=== PATIENT | female | born 1955 | race Caucasian/White ===

== ENCOUNTER 2022-01-10 13:49 | Outpatient (RCR) | payer MEDICARE, SELFPAY | END 2022-07-09 23:59 | disposition home or self-care (01) | LOC: CCIC 13:49 | PROVIDERS: PCP Physician Assistant Medical; Visit Provider Internal Medicine Hematology & Oncology | DX: C50.911 Malignant neoplasm of unspecified site of right female breast (principal); Z17.0 Estrogen receptor positive status [ER+]; Z79.811 Long term (current) use of aromatase inhibitors | CPT/HCPCS: 99212; 99214 ==

== ENCOUNTER 2023-02-06 13:00 | Outpatient (RCR) | payer MEDICARE, SELFPAY | END 2023-04-10 08:51 | disposition home or self-care (01) | PROVIDERS: PCP Physician Assistant Medical; Visit Provider Physician Assistant Medical | DX: H81.11 Benign paroxysmal vertigo, right ear (principal); R26.81 Unsteadiness on feet; Z51.89 Encounter for other specified aftercare | CPT/HCPCS: 95992; 97110; 97112; 97140; 97161; 97535 ==

== ENCOUNTER 2023-07-05 15:01 | Outpatient (CLI) | payer MEDICARE, SELFPAY | END 2023-07-05 15:02 | disposition home or self-care (01) | LOC: AMB 07-17 12:28 | PROVIDERS: PCP Physician Assistant Medical; Visit Provider Emergency Medicine | DX: R55 Syncope and collapse (principal) | CPT/HCPCS: A0998 ==

== ENCOUNTER 2023-07-05 15:34 | Emergency (ER) | payer MEDICARE, SELFPAY ==
[2023-07-05] VITALS (18 sets, daily range): BP systolic 135–166; BP diastolic 60–94; PULSE 66–79; RESP 16–20; TEMP 36.6–36.9; O2SAT 96–100; BMI 35.7
--- NOTE | 2023-07-05 17:02 | ED.GENADULT ---
HPI - General Adult General Date Seen: 07/05/23 Chief complaint: Chest Pain Stated complaint: Syncopal half hour ago Time Seen by Provider: 07/05/23 17:02 History of Present Illness HPI narrative: 67-year-old female with a history of hypertension (on amlodipine, hydrochlorothiazide, metoprolol), microvascular coronary artery disease (patient reports recent coronary angiogram done through [facility] on 06/19/2023 that did not show any large vascular disease or anything stentable but did show microvascular narrowing), distant history of breast cancer (diagnosed 2016, lumpectomy and radiation, now on letrozole), presenting to the ER today after she fainted this afternoon at work. She had been having some chest pain off and on for several weeks leading to a stress test which was apparently abnormal leading to an angiogram that was done at [facility] on June 19. The angiogram did not show any large vessel disease and she did not kidney stents but it did show microvascular disease. She was apparently manage medically and her hand lens polisher put her on a new statin and several new blood pressure pills. For the past couple of weeks since being on those new medicine she has noted a lot of side effects including fatigue, sleepiness, dizziness, muscle aches. She has taken the start taking metoprolol at bedtime because she gets so dizzy during the day. She does have a home blood pressure cuff and has been measuring her blood pressure at home every day. Her recent averages been about 94/60 with a low of 60/40 and height 130/80. She does get chest pains intermittently but they are not any worse or any more frequent than the chest pains that she had had for several weeks leading up to her angiogram. 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 She had she had a busy day at work today because her under staff. She was getting ready to go home after working. She was bending down to take off her shoes when she suddenly felt dizzy. She felt herself getting dizzy a new she might faint. She tried to stand up and then she recalls waking up on the floor. She does not really recall any chest pain, palpitations, headache or other symptoms right before she fainted. She does not have any headache or any other signs of head injury. She really did not hurt herself or injure her face, upper extremities, or lower extremities when she fell. Because of the fainting spell she came here to the ER. She suspects it is probably a side effect of her new blood pressure meds. She apparently did have a heart murmur so had an echocardiogram that apparently showed no trouble with her heart valves. She does not have those records currently. Related Data Home Medications Medication Instructions Recorded Confirmed amlodipine 5 mg tablet 5 mg PO QDAY 01/10/22 01/10/22 hydrochlorothiazide 25 mg tablet 25 mg PO QDAY 01/10/22 01/10/22 letrozole 2.5 mg tablet 2.5 mg PO QDAY 01/10/22 01/10/22 metoprolol succinate 100 mg ea PO 01/10/22 01/10/22 tablet,extended release 24 hr metoprolol succinate 50 mg ea PO 01/10/22 01/10/22 tablet,extended release 24 hr Allergies Allergy/AdvReac Type Severity Reaction Status Date / Time No Known Drug Allergies Allergy Verified 07/05/23 15:41 PFSH PFS Social History Smoking Status: Never smoker Do you use any of these nicotine containing products: None Second hand tobacco smoke exposure: No How often do you have a drink containing alcohol: never How often do you have six or more drinks on one occasion: Never AUDIT-C Alcohol total score: 0 Non-prescribed substance use: denies use service: No Exam Narrative: Exam Narrative: Constitutional: Appears well-developed and well-nourished. Alert. Conversant. Non toxic. HENT: Head: Atraumatic. No depressed skull fracture, Raccoon Eyes, Kasper's sign, or hemotympanum. Face normal. TMs normal Nose: Nose normal. Mouth/Throat: Oral mucosa is clear and moist. no trismus. Pharynx normal. Tonsils symmetric. No tonsillar enlargement, erythema, or exudate. Eyes: Conjunctivae normal. EOM normal. Pupils equal, round, and reactive to light. No scleral icterus. Neck: Normal range of motion. Neck supple. No tracheal deviation present. No JVD Cardiovascular: Normal rate, regular rhythm. No gallop. No friction rub. No murmur heard. Symmetric radial artery pulses Pulmonary/Chest: Effort normal. No stridor. No respiratory distress. No wheezes. No rales. No rhonchi . No tenderness. Abdominal: Soft. Bowel sounds normal. No distension. No mass. No tenderness. No rebound. No guarding. Musculoskeletal: RUE: Normal range of motion. No tenderness. No deformity LUE: Normal range of motion. No tenderness. No deformity RLE: Normal range of motion. No edema. No tenderness. No deformity LLE: Normal range of motion. No edema. No tenderness. No deformity Lymph: No cervical adenopathy. Neurological: Alert and oriented to person, place, and time. Normal strength. CN II-VII intact. No sensory deficit. GCS eye subscore is 4. GCS verbal subscore is 5. GCS motor subscore is 6. Normal coordination Skin: Skin is warm and dry. No rash noted. No pallor. Normal capillary refill. Psychiatric: Normal mood. Normal affect. Const: Vital Signs, click to edit/add: Vital Signs - 24 hr 07/05/23 15:41 07/05/23 17:23 07/05/23 17:30 Temperature 97.8 F Pulse Rate 79 78 Respiratory Rate 16 Blood Pressure Blood Pressure [Ri ght Upper Arm] 148/84 H Pulse Oximetry 98 100 99 Oxygen Delivery Me thod Room Air 07/05/23 17:45 07/05/23 17:47 07/05/23 18:00 Temperature Pulse Rate 74 73 71 Respiratory Rate Blood Pressure 141/60 H Blood Pressure [Ri ght Upper Arm] Pulse Oximetry 98 97 97 Oxygen Delivery Me thod 07/05/23 18:02 07/05/23 18:15 07/05/23 18:49 Temperature Pulse Rate 70 69 71 Respiratory Rate Blood Pressure 143/61 H Blood Pressure [Ri ght Upper Arm] Pulse Oximetry 97 97 97 Oxygen Delivery Me thod 07/05/23 19:03 07/05/23 19:32 07/05/23 20:02 Temperature Pulse Rate 75 69 69 Respiratory Rate 20 20 20 Blood Pressure 166/85 H 160/72 H 158/69 H Blood Pressure [Ri ght Upper Arm] Pulse Oximetry 99 97 99 Oxygen Delivery Me thod 07/05/23 20:33 07/05/23 21:03 07/05/23 21:32 Temperature 98.5 F Pulse Rate 66 66 67 Respiratory Rate 20 20 20 Blood Pressure 160/94 H 148/62 H 145/60 H Blood Pressure [Ri ght Upper Arm] Pulse Oximetry 100 96 97 Oxygen Delivery Me thod Course Course ED Course: Recheck-troponin positive at 1.8. Consult placed to [facility]-cardiology Recheck-at 6:36 p.m. discussed with Cardiology, Dr. Bonilla. We discussed her abnormal troponin also new EKG findings of T-wave changes in the lateral leads. I do not have any old EKGs but Dr. Bonilla was able to review it and said that her most recent EKGs were fairly normal. Dr. Bonilla he indicates that her recent angiogram 16 days ago was very normal and that they would likely would not recapped the patient her based on her current symptoms and troponin. recommends that we get a 2nd troponin to see if it is rising. If it is flat, we could admit here to trend troponins and manage medically by adjusting her medications, starting on Imdur, Updated the patient her at 645. She is not currently having any chest pain. Blood pressure 140/60. Oxygen normal on room air. Reevaluation(s) Reevaluation #1: Recheck-2nd troponin rising up to 2.66. Repeat EKG 2. 8:20 p.m. EKG shows normalization of previous nonspecific T-wave changes in V4-V6. Normal sinus rhythm . rate 67 LA 196 QRS axis normal axis. No pathologic Q-waves. ST segment/T wave: Normalization of previous nonspecific changes in V4-V6. QTc: 416. EKG 3. 8:31 p.m. Normal sinus rhythm rate 67 LA 190 QRS axis normal axis. No pathologic Q-waves per ST segment/T wave: No evolving ST segment elevation or depression. QTc: 426 Vital Signs Vital signs: Initial Vital Signs Temperature 97.8 F 07/05/23 15:41 Temperature Source Temporal Artery Scan 07/05/23 15:41 Respiratory Rate 16 07/05/23 15:41 Blood Pressure 148/84 H 07/05/23 15:41 Blood Pressure Mean 105 07/05/23 15:41 Blood Pressure Position Sitting 07/05/23 15:41 Pulse Oximetry 98 07/05/23 15:41 Oxygen Delivery Method Room Air 07/05/23 15:41 Vital Signs Temperature 97.8 F 07/05/23 15:41 Respiratory Rate 16 07/05/23 15:41 Blood Pressure 148/84 H 07/05/23 15:41 Pulse Oximetry 98 07/05/23 15:41 Oxygen Delivery Method Room Air 07/05/23 15:41 Temperature 98.5 F 07/05/23 21:32 Pulse Rate 67 07/05/23 21:32 Respiratory Rate 20 07/05/23 21:32 Blood Pressure 145/60 H 07/05/23 21:32 Pulse Oximetry 97 07/05/23 21:32 Oxygen Delivery Method Room Air 07/05/23 15:41 Medical Decision Making [facility] Narrative Medical decision making narrative: This has at a interesting recent past medical history including recent episodes of chest pain leading to outpatient stress testing that were abnormal and then a coronary angiogram done that [facility] on June 19. Report from the patient and from eye is that the angiogram showed clear coronary arteries. It was suspected that her chest pain could be related to possible microvascular disease. She has been manage medically with beta-blockers, statins, and aggressive blood pressure control for the past couple of weeks since her angiogram. patient presents for evaluation of a syncopal event that occurred this afternoon as she was getting ready to come home from work.. . No murmurs . Initial ECG shows normal sinus rhythm and no dysrhythmogenic abnormality such as WPW, prolonged QT, Brugada syndrome, and no ischemia. No headache or other neurologic symptoms to suggest subarachnoid , stroke . No reported seizure-like activity or postictal phase. 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 A broad differential diagnosis was considered including SVT, Atrial fibrillation, ventricular arrhythmia, thyroid disease, acute electrolyte abnormality, drugs/medications, medication side effect, anemia, heart disease, PE, among others. She did have mild chest pain today but she really says is unchanged from her baseline chest pain over the past couple of months. EKG shows no definite ischemia or arrhythmia. However troponin is markedly abnormal at 1.6. Discussed with cardiology and they recommended trending troponin. They have a low suspicion for true active ACS given her recent normal angiogram. Repeat troponin obtained after 2 hours was rising up to 2.66. Discussed again with cardiology. They will accept in transfer to [facility]. They anticipate probably medical management with nitrates. They did not want a started a nitro drip here in the ER today (given no chest pain). cardiology recommends no heparin unless she has evolving EKG is or worsening condition EKG shows no evidence for pericarditis. No active chest pain to suggest PE or dissection. No tachycardia or hypoxia. No leg swelling. State blood pressure is stable to slightly hypertensive initially about 140/80. Pulse in the 60s. No arrhythmia or AV block. Chest x-ray shows no evidence for cardiomegaly or CHF. No signs of pneumothorax, pleural effusion. No rib fractures. Mediastinum is normal on the PA chest x-ray. She is not having any active chest pain, at no time did she have any pain through to the back or radiating pain down her extremities. She has symmetric pulses on exam. No evidence for any aortic dissection at this point. Labs do show mild renal insufficiency with creatinine of 1.7 and a BUN of 57. She is mildly anemic with a hemoglobin level 11. No symptoms of recent GI bleeding. Do not have baseline hemoglobin but suspect probably chronic. She will be transferred by EMS to [facility]. Lab Data Labs: Lab Results 07/05/23 07/05/23 Range/Units 17:30 19:36 WBC 11.25 H (4.50-11.00) K/uL RBC 3.71 L (4.00-5.20) m/uL Hgb 11.0 L (12.0-16.0) gm/dL Hct 34.2 (33.0-51.0) % MCV 92 (80-100) fL MCH 30 (26-34) pg MCHC 32 (32-36) gm/dL RDW Coeff of Gabriela 11.9 (11.5-15.5) % Plt Count 295 (140-440) K/uL Neut % (Auto) 78.0 H (42.0-72.0) % Lymph % (Auto) 13.0 L (20-44) % [place] % (Auto) 6.2 (0.0-11.0) % Eos % (Auto) 2.2 (0.0-7.0) % Baso % (Auto) 0.4 (0.0-3.0) % Neut # (Auto) 8.80 H (1.7-7.0) K/uL Lymph # (Auto) 1.50 (0.90-2.90) K/uL [place] # (Auto) 0.70 (0.00-0.90) K/UL Eos # (Auto) 0.20 (0.00-0.50) K/uL Baso # (Auto) 0.00 (0.00-0.30) K/uL Abs Immat Gran (auto) 0.00 (0.00-0.30) K/uL Imm/Tot Granulo (auto) 0.2 % Sodium 141 (135-149) mmol/L Potassium 4.6 (3.6-5.1) mmol/L Chloride 107 (96-114) mmol/L Carbon Dioxide 22 (20-32) mmol/L Anion Gap 12 (7-15) mEq/L BUN 57 H (7-30) mg/dL Creatinine 1.7 H (0.5-1.5) mg/dL Estimated Creat Clear 32.84 Estimated GFR 33 ml/min Glucose 108 (60-115) mg/dL Calcium 9.2 (8.4-10.6) mg/dL Troponin I 1.81 H* 2.66 H* (0.01-0.04) ng/mL Imaging Data Chest x-ray: My impression: Normal cardiac silhouette. No cardiomegaly. No CHF, pleural effusion, pneumothorax. No visible rib fracture. Mediastinum normal. ECG Data Attestation: I personally reviewed and interpreted this ECG as follows: Interpretation: Normal sinus rhythm rate 81 LA 202. First-degree AV block QRS axis normal axis. No pathologic Q-waves. ST segment/T wave: No ST segment elevation or depression. Nonspecific T-wave flattening in lead 3, V3, V4, V5, V6. QTc: 420 Discharge Plan Discharge Clinical Impression: Non-STEMI (non-ST elevated myocardial infarction), Syncope Prescriptions: No Action letrozole 2.5 mg tablet 2.5 mg PO QDAY Patient Comments: TAKE 1 TABLET BY MOUTH EVERY DAY amlodipine 5 mg tablet 5 mg PO QDAY hydrochlorothiazide 25 mg tablet 25 mg PO QDAY metoprolol succinate 100 mg tablet extended release 24 hr PO Patient Comments: TAKE 1 TABLET BY MOUTH ONCE DAILY. TAKE IN ADDITION TO 50 MG FOR A TOTAL OF 150 MG. metoprolol succinate 50 mg tablet extended release 24 hr PO Patient Comments: TAKE 1 TABLET BY MOUTH ONCE DAILY. TAKE IN ADDITION TO 100 MG FOR A TOTAL OF 150 MG. Follow Up/Referrals: Mali Leary PA-C [Primary Care Provider] -
[2023-07-05 17:42] LABS: Basophils Percent Auto 0.4 % (0.0-3.0); Eosinophils Percent Auto 2.2 % (0.0-7.0); Hematocrit 34.2 % (33.0-51.0); Immature Granulocytes Pct Auto 0.2 %; Mean Corpuscular HGB Conc 32 gm/dL (32-36); Mean Corpuscular Hemoglobin 30 pg (26-34); Mean Corpuscular Volume 92 fL (80-100); Monocytes Percent Auto 6.2 % (0.0-11.0); Platelet Count* 295 K/uL (140-440); RDW Coefficient of Variation % 11.9 % (11.5-15.5); Red Blood Count 3.71 m/uL (4.00-5.20); White Blood Count* 11.25 K/uL (4.50-11.00)
[2023-07-05 17:45] LABS: Slide Review Reflex No
[2023-07-05 17:51] LABS: Chloride* 107 mmol/L (96-114); Potassium* 4.6 mmol/L (3.6-5.1); Sodium* 141 mmol/L (135-149)
[2023-07-05 17:54] LABS: Anion Gap 12 mEq/L (7-15); Blood Urea Nitrogen* 57 mg/dL (7-30); Carbon Dioxide* 22 mmol/L (20-32); Creatinine* 1.7 mg/dL (0.5-1.5); Est. Creatinine Clearance* 32.84; Estimated Glomerular Filt Rate 33 ml/min
[2023-07-05 17:55] LABS: Calcium* 9.2 mg/dL (8.4-10.6); Glucose* 108 mg/dL (60-115)
[2023-07-05 18:10] LABS: Troponin I* 1.81 ng/mL (0.01-0.04)
[2023-07-05 20:16] LABS: Troponin I* 2.66 ng/mL (0.01-0.04)
--- NOTE | 2023-07-05 21:07 | XR_ITS ---
Patient: DAIANA BENITEZ Facility:?[facility] Patient ID:?[id number] Site Patient [id number]:?[id number]. Site :?[id number] Study:?XRay-Chest 2V-07/05/2023 9:50:30 PM Ordering Physician:LISA Final Report: INDICATION: SYNCOPE, ABNORMAL TROPOPIN TECHNIQUE: Chest 2 views. COMPARISON: None. FINDINGS: Cardiovascular and mediastinum: Heart size and vasculature are normal in caliber and appearance. Mediastinum is within normal limits. Lungs and pleural spaces: Lungs are clear. No sign of infiltrate or mass. No sign of pleural effusion. No pneumothorax. Bones and soft tissues: No significant findings. IMPRESSION: Unremarkable chest. Dictated by: Rajeev Rosado MD @ 07/05/2023 22:08:34 Signed by:Merlyn Rosado MD @07/05/2023 10:08:34 PM (Electronic Signature)
== END 2023-07-05 22:04 | disposition short-term general hospital (02) ==
LOC: ED 17:50
PROVIDERS: Emergency Provider Emergency Medicine; PCP Physician Assistant Medical
DX: I21.4 Non-ST elevation (NSTEMI) myocardial infarction (principal); R55 Syncope and collapse
CPT/HCPCS: 36415; 71046; 80048; 84484; 85025; 93005; 94761; 99285

== ENCOUNTER 2023-07-05 21:53 | Outpatient (CLI) | payer MEDICARE, SELFPAY | END 2023-07-05 21:54 | disposition home or self-care (01) | LOC: AMB 07-17 14:15 | PROVIDERS: PCP Physician Assistant Medical; Visit Provider Internal Medicine | DX: I21.4 Non-ST elevation (NSTEMI) myocardial infarction (principal) | CPT/HCPCS: A0425; A0427; A0998 ==

== ENCOUNTER 2024-01-28 08:52 | Day surgery (SDC) | payer MEDICARE, SELFPAY ==
[2024-01-28] VITALS (21 sets, daily range): BP systolic 105–186; BP diastolic 57–97; PULSE 53–62; RESP 16–18; TEMP 35.6–36.8; O2SAT 93–100; BMI 36.5
--- OUTSIDE RECORDS SUMMARY | 2024-01-28 08:56 | XMS_ITS | Clinical Summary ---
Author Organization [facility] [facility] Address [place], [place] [address] Care Team Providers Care Biology Intern Name Role Phone Armand Chavira MD Unavailable [phone] Ying Waterman MD Unavailable [phone] Destin [place] Unavailable Unavailable Mali Leary Primary Care Provider Allergies Active Allergy Reactions Criticality Noted Date Comments Zuzcahr-Hmo-Ogx Reductase Inhibitors Diarrhea 02/06/2017 Medications Medication Sig Dispensed Refills Start Date End Date Status LORazepam (ATIVAN) 0.5 mg tabIndications:Fear of travel with panic attacks Take 1 tablet by mouth every 4 hours if needed for Anxiety. 2 flights coming up 10 tablet 04/15/2019 Active ezetimibe (ZETIA) 10 mg tabletIndications:H ypercholesterolemia Take 1 Tablet (10 mg) by mouth once daily. 90 Tablet 3 06/05/2023 Active hydroCHLOROthiazide (HCTZ) 25 mg tabletIndications:E ssential hypertension Take 1 Tablet (25 mg) by mouth once daily. TAKE ONE TAB BY MOUTH ONCE DAILY. 90 Tablet 3 06/05/2023 Active ibuprofen (AdviL) 200 mg tabletIndications:K nee pain, unspecified chronicity, unspecified laterality Take 3 Tablets (600 mg) by mouth every 6 hours if needed for Pain. Pt is taking this daily every 8 hr. 06/07/2023 Active calcium with vitamin D3 (OS-EDER 500 + D) tablet Take 2 Tablets by mouth once daily. Active isosorbide mononitrate (IMDUR) 30 mg extended release tablet 24 HourIndications:Cor onary artery disease, unspecified vessel or lesion type, unspecified whether angina present, unspecified whether lime or transplanted heart,Chest pain, unspecified type Take 1 Tablet (30 mg) by mouth once daily. 90 Tablet 3 11/05/2023 Active olmesartan (BENICAR) 40 mg tabletIndications:H TN (hypertension) Take 0.5 Tablets (20 mg) by mouth once daily. half tablet 01/08/2024 Active metoprolol succinate (TOPROL XL) 100 mg Sustained-Release tabletIndications:E ssential hypertension 100mg in the AM and 50mg in the evening 01/08/2024 Active rosuvastatin (CRESTOR) 10 mg tabletIndications:H ypercholesterolemia Take 1 Tablet (10 mg) by mouth at bedtime. 90 Tablet 3 06/24/2023 01/08/2024 Discontinued (*Med complete/Reg imen complete/Lev el of care change) metoprolol succinate (TOPROL XL) 100 mg Sustained-Release tabletIndications:E ssential hypertension Take 1 Tablet (100 mg) by mouth once daily. 90 Tablet 3 07/07/2023 01/08/2024 Discontinued (*Medication adjustment) olmesartan (BENICAR) 40 mg tabletIndications:H TN (hypertension) Take 1 Tablet (40 mg) by mouth once daily. 90 Tablet 3 11/05/2023 01/08/2024 Discontinued (*Medication adjustment) Active Problems Problem Noted Date Diagnosed Date Chronic chest pain 07/06/2023 Syncope and collapse 07/06/2023 Elevated troponin 07/06/2023 Pseudopolyposis of colon wit hout complication, unspecified part of colon 05/30/2022 invasive ductal carcinoma, grade 2/3 DCIS 2015 Bilateral knee pain 06/24/2014 Overview (01/28/2015): Chronic, episodic for three years Jun 2014: right knee cortisone injection by Dr. Winters 85% better 2 weeks out. July 2014: left knee cortisone injection by Dr. Winters. October 2014: bilateral knee cortisone injections by Dr. Winters. Jan 2015: Gel One hyaluronic acid injections bilaterally knees, [facility] Mailed [facility] sy[facility] to clinic due to insurance coverage issues. Colon polyp 12/22/2010 Overview (12/01/2021): Colonoscopy 12/2010 multiple polyps repeat in 1 year Colonoscopy 08/2012 polyps repeat in 5 years Colonoscopy 07/2018 4 polyps, repeat in 3 years Colonoscopy 11/2021 inflammatory polyp, repeat in 5 years Vitamin D deficiency 11/27/2010 Unspecified essential hypertension 01/28/2008 Mixed hyperlipidemia 01/28/2008 Resolved Problems Problem Noted Date Diagnosed Date Resolved Date Chest pain, unspecified 12/22/201012/11 Encounters Date Type Department Care Team Description 01/08/2024 4:20 PM CDT Office Visit [facility] [address] [place] [address] Marie Alan, Preoperative Exam (Left knee surgery /Jan 27/[facility], Dr. Chavira) 01/08/2024 Travel 11/05/2023 8:00 AM CDT Office Visit [facility] [address] [facility] [address] [place] [address] Janine Osorio NP Follow Up (3 month F/U, labs prior. Pt states feeling ok, she had a few infrequent episodes of SVT - last one was yesterday. No current cardiac symptoms) 11/05/2023 7:24 AM CDT - 11/05/2023 11:59 PM CDT Hospital Encounter [facility] [address] [place] [address] Coronary artery disease, unspecified vessel or lesion type, unspecified whether angina present, unspecified whether lime or transplanted heart; Hyperlipidemia, unspecified hyperlipidemia type 11/05/2023 Travel from Last 3 Months Immunizations Name Administration Dates Next Due COVID-19 vaccine (VOYAA NTTugende 30mcg/0.3mL) HOLLY HUGHES 05/17/2021 DTP 11/27/2010 Influenza, IIV3 (Age 6-35 mos) 03/06/2011 Influenza, IIV3 (Age >=3 years) 05/23/2012,03/06 Influenza, IIV4 01/22/2020, 9,03/19/2018,2016,06/01/2015 Influenza, Inactivated AIIV4 (Age 65+ Years) Preserv Free 01/28/2023 Pneumococcal Conj 20-valent (Prevnar 20) 05/30/2022 Tdap 11/10/2015 Family History Medical History Relation Name Comments Cancer-prostate Brother 1 Hypertension Brother 1 Cancer-prostate Brother 2 Other Brother 2 colon polyps Hypertension Brother 3 Other Father Alzheimers Cancer-colon Maternal Grandfather Cancer-breast Maternal Grandmother 80's y rs old Hypertension Mother Other Mother Alzheimers Thyroid Disease Mother Transient ischemic attack Mother Cancer-breast Other niece Cancer-colon Paternal Grandfather 55 Cancer-breast Sister lymphoma as we ll Cancer-ovarian Sister Cancer No Family History Relation Name Status Comments Brother 1 Alive Brother 2 Alive Brother 3 Alive Father (Age 83) Maternal Grandfather Maternal Grandmother Mother Other niece Alive Paternal Grandfather Sister (Age 64) BRCA+ Social History Tobacco Use Types Packs/Day Years Used Date Smoking Tobacco: Former Cigarettes Q uit: 09/07/2010 Smokeless Tobacco: Never Tobacco Cessation:Counseling Given: Yes Alcohol Use Standard Drinks/Week Comments Not Currently 0 (1 standard drink = 0.6 oz pur e alcohol) rare PHQ-2 Answer Date Recorded PHQ-2 TOTAL SCORE 0 06/05/2023 Social Connections Answer Date Recorded Frequency of Communication with Friends and Fami ly 0 02/20/2023 Financial Resource Strain Answer Date R ecorded Difficulty of Paying Living Expenses 3 02/20/2023 Difficulty of Paying Living Expenses Not on file 02/20/2023 Food Insecurity Answer Date Recorded Worried About Running Out of Food in the Last Ye ar 1 02/20/2023 Transportation Needs Answer Date Record ed Lack of Transportation (Medical) 1 02/20/2023 Housing Stability Answer Date Recorded Unable to Pay for Housing in the Last Year 1 02/20/2023 Sex and Gender Information Value Date Recorded Sex Assigned at Not on file Gender Identity Not on file Sexual Orientation Not on file Obstetrics History Para Term AB IAB SAB Ectopic Multiple Livin g Live Births 3 2 Date Outcome GA Total Labor Labor/2nd/3rd Weight Sex Type Anes PTL Marcia A1 A5 Name Clin Last Filed Vital Signs Vital Sign Reading Time Taken Comments Blood Pressure 154/80 01/08/2024 4:20 PM CDT Pulse 65 01/08/2024 4:20 PM CDT Temperature 36.8 ??C (98.2 ??F) 01/08/2024 4:24 PM CD T Respiratory Rate 14 07/07/2023 7:34 AM COMPOUNDER HELPER Oxygen Saturation 96% 01/08/2024 4:20 PM CDT Inhaled Oxygen Concentration - - Weight 109.3 kg (241 lb) 01/08/2024 4:20 PM CDT Height 170.2 cm (5' 7) 11/05/2023 7:50 AM CDT Body Mass Index 37.75 11/05/2023 7:50 AM CDT Plan of Treatment Health Maintenance Due Date Last Done Comments Zoster (shingles) series for age 50+ (1 of 2) 2006 DEXA/DXA scan for age 65+ 11/08/20212019, 02/12/2017, 11/28/2010 COVID-19 vaccine series ( season) 2024 05/17/2021, 08/20/2020, 07/30/2020 Influenza for age 65+ 01/12/2024 01/28/2023 , 01/22/2020, 03/19/2019, Additional history exists Mammogram for age 45-75 06/05/2024 06/05/19, 05/30/2022, 02/16/2021, Additional history exists Medicare Wellness for age 65+ 06/05/2024 06/05/2023, 05/30/2022 Depression screening for age 12+ 06/19/2024 06/19/2023, 06/07/2023, 06/05/2023, Additional history exists BMI (ht and wt on same day) for age 18+ 11/04/2024 11/05/2023, 07/19/2023, 06/07/2023, Additional history exists Tetanus booster 11/09/2025 11/10/2015, 11/27/2010 Colonoscopy through age 75 11/30/202611/30, 11/30/2021, 07/16/2018, Additional history exists Lipids for age 45-75 11/04/2028 11/05/2023, 06/05/2023, 05/30/2022, Additional history exists Hepatitis C screening for ag e 18-79 Completed 09/22/2014 Tdap Completed 11/10/2015 Pneumococcal series for age 65+ Completed 3 Goals Goal Patient Goal Type Associated Problems Recent Progress Patient-Stated? Author BLOOD PRESSURE-MA INTAINS BP LESS THAN 130/80 Blood Pressure No Rosi Brasher NP Procedures Procedure Name Priority Date/Time Associated Diagnosis Comments URINE CULTURE Add On 01/08/2024 5:02 PM CDT Abnormal urinalysis URINALYSIS MICROSCOPIC Routine 01/08/2024 5:02 PM CDT Pre-op exam CBC WITH AUTO DIFFERENTIAL Routine 01/08/2024 5:02 PM CDT Pre-op exam UA W/ SEDIMENT EXAM REFLEXED PER CRITERIA Routine 01/08/2024 5:02 PM CDT Pre-op exam CBC WITH AUTO DIFFERENTIAL Routine 01/08/2024 5:02 PM CDT Pre-op exam BASIC METABOLIC PANEL Routine 01/08/2024 5:02 PM CDT HTN (hypertension) LIPID PANEL W REFLEX MEASURED LDL Today 11/05/2023 7:32 AM CDT Coronary artery disease, unspecified vessel or lesion type, unspecified whether angina present, unspecified whether lime or transplanted heart Hyperlipidemia, unspecified hyperlipidemia type ALT (SGPT) Today 11/05/2023 7:32 AM CDT Coronary artery disease, unspecified vessel or lesion type, unspecified whether angina present, unspecified whether lime or transplanted heart Hyperlipidemia, unspecified hyperlipidemia type XR MAMMO BILAT SCREENING Routine 06/05/2023 8:05 AM COMPOUNDER HELPER Visit for screening mammogram COLONOSCOPY 11/30/2021 7:47 AM CDT XR DXA BONE DENSITY 2 SITES AXIAL Routine 02/17/2020 3:52 PM CDT Menopausal symptoms ANTI HCV Routine 09/22/2014 9:51 AM CDT Need for hepatitis C screening test from Last 3 Months or Most Recently Relevant to Health Maintenance Results * (ABNORMAL) CBC WITH AUTO DIFFERENTIAL (01/08/2024 5:02 PM CDT) WHITE BLOOD COUNT 8.7 4.5 - 11.0 thou/cu mm 01/08/2024 5:07 PM CDT [facility] RED BLOOD COUNT 3.94(L) 4.00 - 5.20 mil/cu mm 01/08/2024 5:07 PM CDT [facility] HEMOGLOBIN 11.8(L) 12.0 - 16.0 g/dL 01/08/2024 5:07 PM CDT [facility] HEMATOCRIT 36.5 33.0 - 51.0 % 01/08/2024 5:07 PM CDT [facility] MCV 93 80 - 100 fL 01/08/2024 5:07 PM CDT [facility] MCH 29.9 26.0 - 34.0 pg 01/08/2024 5:07 PM CDT [facility] MCHC 32.3 32.0 - 36.0 g/dL 01/08/2024 5:07 PM CDT [facility] RDW 13.3 11.5 - 15.5 % 01/08/2024 5:07 PM CDT [facility] PLATELET COUNT 321 140 - 440 thou/cu mm 01/08/2024 5:07 PM CDT [facility] MPV 9.6 6.5 - 11.0 fL 01/08/2024 5:07 PM CDT [facility] % NEUT 60.6 % 01/08/2024 5:07 PM CDT [facility] % LYMPH 26.2 % 01/08/2024 5:07 PM CDT [facility] % MONO 9.8 % 01/08/2024 5:07 PM CDT [facility] % EOS 2.9 % 01/08/2024 5:07 PM CDT [facility] % BASO 0.5 % 01/08/2024 5:07 PM CDT [facility] ABSOLUTE NEUTROPHILS 5.3 1.7 - 7.0 thou/cu mm 01/08/2024 5:07 PM CDT [facility] ABSOLUTE LYMPHOCYTES 2.3 0.9 - 2.9 thou/cu mm 01/08/2024 5:07 PM CDT [facility] ABSOLUTE MONOCYTES 0.9(H) <0.9 thou/cu mm 01/08/2024 5:07 PM CDT [facility] ABSOLUTE EOSINOPHILS 0.3 <0.5 thou/cu mm 01/08/2024 5:07 PM CDT [facility] ABSOLUTE BASOPHILS 0.0 <0.3 thou/cu mm 01/08/2024 5:07 PM CDT [facility] Blood BLOOD SPECIMEN / Unknown Venipuncture / Unknown 01/08/2024 5:02 PM CDT 01/08/2024 5:04 PM CDT Marie Alan DO HEMATOLOGY [facility] [address] [place] [address], * (ABNORMAL) URINALYSIS MICROSCOPIC (01/08/2024 5:02 PM CDT) RBC 0-2 0-2, None Seen /HPF 01/08/2024 5:11 PM CDT [facility] WBC 26-50(A) 0-2, 3-5, None Seen /HPF 01/08/2024 5:11 PM CDT [facility] BACTERIA Few None Seen, Rare, Few Bacteria/ HPF 01/08/2024 5:11 PM CDT [facility] EPITHELIAL CELLS Moderate(A ) None Seen, Few Epi/HPF 01/08/2024 5:11 PM CDT [facility] Urine URINE SPECIMEN / Unknown Non-Blood / Unknown 01/08/2024 5:02 PM CDT 01/08/2024 5:04 PM CDT Marie Alan DO URINE [facility] [address] [place] [address], * URINE CULTURE (01/08/2024 5:02 PM CDT) CULTURE <10,000 CFU/mL multiple organisms 01/10/2024 1:26 PM CDT [facility] Urine URINE SPECIMEN / Unknown Non-Blood / Unknown 01/08/2024 5:02 PM CDT 01/08/2024 5:04 PM CDT Marie Alan DO [facility]CRO[facility]OLOGY [facility] [address] [place] [address], [place] * (ABNORMAL) UA W/ SEDIMENT EXAM REFLEXED PER CRITERIA (01/08/2024 5:02 PM CDT) COLOR Yellow Yellow Color 01/08/2024 5:10 PM CDT [facility] CLARITY Clear Clear Clarity 01/08/2024 5:10 PM CDT [facility] SPECIFIC GRAVITY,URINE 1.020 1.010, 1.015, 1.020, 1.025 01/08/2024 5:10 PM CDT [facility] PH,URINE 6.0 6.0, 7.0, 8.0, 5.5, 6.5, 7.5, 8.5 01/08/2024 5:10 PM CDT [facility] UROBILINOGEN, QUALITATIVE Normal Normal EU/dl 01/08/2024 5:10 PM CDT [facility] PROTEIN, URINE Negative Negative mg/dL 01/08/2024 5:10 PM CDT [facility] GLUCOSE, URINE Negative Negative mg/dL 01/08/2024 5:10 PM CDT [facility] KETONES,URINE Negative Negative mg/dL 01/08/2024 5:10 PM CDT [facility] BILIRUBIN,URI NE Negative Negative 01/08/2024 5:10 PM CDT [facility] OCCULT BLOOD,URINE Negative Negative 01/08/2024 5:10 PM CDT [facility] NITRITE Negative Negative 01/08/2024 5:10 PM CDT [facility] LEUKOCYTE ESTERASE Moderate(A) Negative 01/08/2024 5:10 PM CDT [facility] Urine URINE SPECIMEN / Unknown Non-Blood / Unknown 01/08/2024 5:02 PM CDT 01/08/2024 5:04 PM CDT Marie Alan DO URINE [facility] [address] [place] [address], * (ABNORMAL) BASIC METABOLIC PANEL (01/08/2024 5:02 PM CDT) SODIUM 142 136 - 145 mmol/L 01/09/2024 2:27 AM CDT [facility] POTASSIUM 4.0 3.5 - 5.1 mmol/L 01/09/2024 2:27 AM CDT [facility] CHLORIDE 107 98 - 107 mmol/L 01/09/2024 2:27 AM CDT [facility] CO2,TOTAL 24 22 - 29 mmol/L 01/09/2024 2:27 AM CDT [facility] ANION GAP 11 5 - 18 01/09/2024 2:27 AM CDT [facility] GLUCOSE 94 70 - 99 mg/dL 01/09/2024 2:27 AM CDT [facility] CALCIUM 9.4 8.8 - 10.2 mg/dL 01/09/2024 2:27 AM CDT [facility] BUN 17 8 - 23 mg/dL 01/09/2024 2:27 AM CDT [facility] CREATININE 0.89 0.50 - 0.90 mg/dL 01/09/2024 2:27 AM CDT [facility] BUN/CREAT RATIO 19 10 - 20 4 2:27 AM CDT [facility] eGFR 71(L) >90 mL/min/1.7 3m2 01/09/2024 2:27 AM CDT [facility] Comment:As of 2021, eG FR is calculated by the CKD-EPI creatinine equation without race adjustment. ??eGFR can be influenced by muscle mass, exercise, and diet. ??The reported eGFR is an estimation only and is only applicable if the renal function is stable. Blood BLOOD SPECIMEN / Unknown Venipuncture / Unknown 01/08/2024 5:02 PM CDT 01/08/2024 5:04 PM CDT Janine Osorio SHRIMP HEADER CHEMISTRY [facility] [address] [place] [address], * LIPID PANEL W REFLEX MEASURED LDL (11/05/2023 7:32 AM CDT) CHOLESTEROL,TOTAL 139 100 - 199 mg/dL 11/05/2023 8:04 AM [facility] Comment: Cholesterol, Total Reference Ranges Desirable <200 mg/dL Borderline 200-239 mg/dL High >=240 mg/dL TRIGLYCERIDES 77 <150 mg/dL 11/05/2023 8:04 AM [facility] HDL CHOLESTEROL 50 >40 mg/dL 8:04 AM T [facility] NON-HDL CHOLESTEROL 89 <145 mg/dl 11/05/2023 8:04 AM T [facility] CHOL/HDL RATIO 2.78 <4.50 11/05/2023 8:04 AM [facility] LDL CHOLESTEROL 74 <=130 mg/dL 11/05/2023 8:04 AM T [facility] VLDL CHOLESTEROL 15 <=30 mg/dL 11/05/2023 8:04 AM [facility] PROVIDER ORDERED STATUS FASTING 11/05/2023 8:04 AM T [facility] Blood BLOOD SPECIMEN / Unknown Venipuncture / Unknown 11/05/2023 7:32 AM CDT 11/05/2023 7:32 AM CDT Janine Victorton SHRIMP HEADER CHEMISTRY Performing Organization Address City/[facility] Co de Phone Number [address] [address] * ALT (SGPT) (11/05/2023 7:32 AM CDT) ALT (SGPT) 10 10 - 35 IU/L 11/05/2023 8:04 AM CDT [facility] Blood BLOOD SPECIMEN / Unknown Venipuncture / Unknown 11/05/2023 7:32 AM CDT 11/05/2023 7:32 AM CDT Janine Potts [place] TELLO CHEMISTRY Performing Organization Address [facility] de Phone Number [address] [address] * XR MAMMO BILAT SCREENING (06/05/2023 8:05 AM COMPOUNDER HELPER) Anatomical Region Laterality Modality BREASTS, Breast Left, Breast Right Bilateral Mammography Impressions 06/05/2023 2:58 PM COMPOUNDER HELPER ??There is no radiographic evidence for malignancy. ??Recommend annual mammograms. MAMMOGRAM ASSESSMENT: ??ACR 1 Negative PATIENTS: You will also receive a letter with your examination results in an easy to read format. ??If you have questions about your results, please contact your referring provider. Narrative 06/05/2023 2:58 PM COMPOUNDER HELPER For Patients: As a result of the Century Cures Act, medical imaging exams and procedure reports are released immediately into your electronic medical record. You may view this report before your referring provider. If you have questions, please contact your health care provider. XR MAMMO BILAT SCREENING [[id number]] CLINICAL HISTORY: ??This is an asymptomatic 67 y.o. patient. INDICATION FOR EXAM: Mammogram Screening. TECHNIQUE: CC & MLO views were obtained. ??This study was evaluated with the assistance of Computer-Aided Detection. COMPARISON FILM: Yes 05/30/22 [facility] 02/16/21 [facility] FINDINGS: ??The breasts have scattered areas of fibroglandular density. There are no dominant masses, suspicious micro calcifications or areas of architectural distortion. [place]i Deliaalvino GRAHAM MAMMO * COLONOSCOPY (11/30/2021 7:47 AM CDT) 11/30/2021 7:47 AM CDT Narrative Transcriptions Marcus Diehl MD - 11/30/2021 8:47 AM CDT Patient Name: Cammie Ureña Procedure Date: 11/30/2021 Gender: Female Date of : 1955 Admit Type: Outpatient Procedure: Colonoscopy Proceduralist: Marcus Diehl MD , Do Springer (Nurse) Indications/Pre-Op Diagnosis: High risk colon cancer surveillance:Personal history of colonic polyps, Last colonoscopy: July 2018 Medications: Fentanyl 150 micrograms IV, Midazolam 2 mgIV, The level of sedation administered wasmoderate Procedure Description: The patient had risks, benefits and alternatives explained to andgave informed consent. The patient had a stable cardiopulmonary status and judged an adequate candidate for conscious sedation. The [id number] was passed through the anus and advanced tothe cecum, identified by appendiceal orifice and ileocecal valve. The colonoscopy was performed without difficulty. The patient toleratedthe procedure well. The quality of the bowel preparation was good. Anatomical landmarks were photographed. Complications: No immediate complications. Estimated Blood Loss & Specimen: Estimated blood loss: none. Specimen collected - Yes and sent to Laboratory Findings: The perianal and digital rectal examinations were normal. A 3 mm polyp was found in the descending colon. The polyp was semi-pedunculated. The polyp was removed with a cold snare. Resection and retrieval were complete. Scattered small and large-mouthed diverticula were found in thesigmoid colon and descending colon. The exam was otherwise without abnormality. Impressions/Post-Op Diagnosis: - One 3 mm polyp in the descending colon, removed with a cold snare. Resected and retrieved. - Mild diverticulosis in the sigmoid colon and in the descendingcolon. - The examination was otherwise normal. Recommendation: - Patient has a contact number available for emergencies. The signsand symptoms of potential delayed complications were discussed with the patient. Return to normal activities tomorrow. Written discharge instructions were provided to the patient. - Resume previous diet. - Continue present medications. - Await pathology results. - Repeat colonoscopy is recommended. The colonoscopy date will be determined after pathology results from today's exam become available for review. Moderate Sedation: Moderate (conscious) sedation was administered by the endoscopy nurse and supervised by the endoscopist. The following parameters were monitored: oxygen saturation, heart rate, respiratory rate, blood pressure, adequacy of pulmonary ventilation and reponse to care. Please refer to the patient's medical record flowsheets and nursing notes for moderate sedation details. Total physician intraservice time was 23 minutes. Marcus Diehl MD 11/30/2021 8:47:08 AM This report has been signed electronically. Note Initiated On: 11/30/2021 7:47 AM Procedure Code(s): --- Professional --- 45910, Colonoscopy, flexible; with removalof tumor(s), polyp(s), or other lesion(s) bysnare technique Diagnosis Code(s): --- Professional --- Z86.010, Personal history of colonicpolyps D12.4, Benign neoplasm of descending colon K57.30, Diverticulosis of large intestine without perforation or abscess withoutbleeding CPT copyright 2020 [employer]. All rights reserved. The codes documented in this report are preliminary and upon soft drink powder mixer reviewmay be revised to meet current compliance requirements. Scope In: 8:07:20 AM Scope Withdrawal Time 0 hours 15 minutes 41 seconds Scope Out: 8:27:21 AM Marcus Diehl MD PROCEDURE ORD * (ABNORMAL) XR DXA BONE DENSITY 2 SITES AXIAL (02/17/2020 3:52 PM CDT) Anatomical Region Laterality Modality Spine, HIPS, HIPL, HIPR Other Narrative 02/22/2020 9:46 AM CDT Please see scanned document for results of this study. Karey Malin MD DEXA * ANTI HCV (09/22/2014 9:51 AM CDT) HEPATITIS C ANTIBODY Non-Reacti ve Non-Reacti ve 09/22/2014 4:51 PM CDT [facility] [employer] [facility] Blood specimen (specimen) BLOOD SPECIMEN / Unknown Venipuncture / Unknown 09/22/2014 9:51 AM CDT 09/22/2014 10:20 AM CDT Narrative [facility] - 09/22/2014 4:51 PM CDT Antibodies to HCV not detected; does not exclude the possibility of exposure to HCV. Rosi Morris NP SEND [facility] [address] [place] [address], from Last 3 Months or Most Recently Relevant to Health Maintenance Advance Directives * Full Code (Latest Code Status on File) Date Activated Date Inactivated Comments 07/06/2023 6:32 AM 07/07/2023 3:47 PM Question Answer Comments Code Status Discussion: Reviewed Preferences * Full Code Date Activated Date Inactivated Comments 07/05/2023 11:25 PM 07/06/2023 6:32 AM Question Answer Comments Code Status Discussion: Unable to Assess Preferences, Provider to review later * Full Code Date Activated Date Inactivated Comments 01/05/2016 12:11 PM 01/05/2016 6:46 PM Care Teams Biology Intern Relationship Specialty Start Date End Date [place] [address] PCP - General Physician [employer] Operator 04/18/20 Armand Chavira MD Surgery - Orthopedic 06/01/15 iYng Waterman MD Surgery - General 11/25/15 Destin Montgomery Hematology and Oncology 03/22/16
[2024-01-28] MEDS: ACETAMINOPHEN 500 MG TABLET 1000 MG PO ×3 (09:39→21:41)
[2024-01-28] MEDS: OXYCODONE (CR) 10 MG TAB.ER.12H PO (09:40)
[2024-01-28] MEDS: CELECOXIB 200 MG CAPSULE PO (09:40)
[2024-01-28] MEDS: SODIUM CHLORIDE 0.9 % (FLUSH) 10 ML SYRINGE IVF (09:50)
[2024-01-28] MEDS: LACTATED RINGERS 1000 ML 1,000 ML 100 ML IV ×2 (09:50→12:01)
[2024-01-28] MEDS: fentaNYL 100 MCG/2 ML inj IVP (10:16)
[2024-01-28] MEDS: MIDAZOLAM HCL 1 MG/ML inj IVP (10:16)
--- NOTE | 2024-01-28 10:18 | SUR.PREOP ---
TIME?OUT:?1015 PT/RN/MDA?VERIFICATION?OF?SURGICAL?SITE,?PROCEDURE,?AND?CONSENT OBTAINED?PRIOR?TO?INVASIVE?PROCEDURE. all in agreement
[2024-01-28] MEDS: CEFAZOLIN 2 GM INJ IVP (10:26)
[2024-01-28] MEDS: TRANEXAMIC ACID 100 MG/ML INJ 1000 MG IV (10:28)
--- NOTE | 2024-01-28 10:46 | W.PM.NB ---
Nerve Block Nerve Block Time Seen by Provider: 10:16 Date Seen: 01/28/24 Type of block requested by surgeon for post-operative analgesia: adductor canal Side: left Time out performed: Yes Verification of patient name: Yes Verification of date of : Yes Site marking: site marked Name of person performing procedure: Yong Continuous monitoring Was continuous monitoring of O2 sat, B/P, professional healthcare representative, recorded every 15 minutes?: Yes Procedure Checklist: sterile prep, needles and gloves Ultrasound guided. Images saved: Yes Medications given in 5ml increments after negative aspiration: Ropivicaine %: 0.5 mL: 20 Needle gauge: 20 Decadron (mg): 10 Precedex (mcg): 25 Patient tolerated procedure well: Yes Additional comments: Needle noted adjacent to nerve Block Charges Block Charge (with Pro Fee): Femoral Nerve Use of Ultrasound Machine for Block: Yes- US Guidance/pain block
--- NOTE | 2024-01-28 10:46 | W.PM.NB ---
Nerve Block Nerve Block Time Seen by Provider: 10:16 Date Seen: 01/28/24 Type of block requested by surgeon for post-operative analgesia: geniculars Side: left Time out performed: Yes Verification of patient name: Yes Verification of date of : Yes Site marking: site marked Name of person performing procedure: Yong Continuous monitoring Was continuous monitoring of O2 sat, B/P, emergency care attendant, recorded every 15 minutes?: Yes Procedure Checklist: sterile prep, needles and gloves Medications given in 5ml increments after negative aspiration: Ropivicaine %: 0.5 mL: 9 Needle gauge: 25 Patient tolerated procedure well: Yes Block Charges Block Charge (with Pro Fee): Genicular Nerve Block Use of Ultrasound Machine for Block: No
--- NOTE | 2024-01-28 10:47 | W.ANESCHARGE ---
Anesthesia Charges Start Date/Time Anesthesia Start Date: 01/28/24 Anesthesia Start Time: 10:19 Stop Date/Time Anesthesia Stop Date: 01/28/24 Anesthesia Stop Time: 12:57
--- NOTE | 2024-01-28 11:54 | CRLHL7_ITS ---
For Patients: As a result of the Cures Act, medical imaging exams and procedure reports are released immediately into your electronic medical record. You may view this report before your referring provider. If you have questions, please contact your health care provider. Indication: Total knee arthroplasty Technique: Two views left knee Findings/Impression: Hardware from a left total knee arthroplasty is in satisfactory position. Bone alignment is normal. No sign of acute fracture. Postop changes are within normal limits. Dictated by Olu Taylor MD @ 01/29/2024 11:15:41 AM (Electronically Signed)
--- NOTE | 2024-01-28 11:57 | P.ORPRC_ITS ---
Procedure Note Date of procedure: 01/28/24 Procedure: PREOPERATIVE DIAGNOSIS: Left knee osteoarthritis POSTOPERATIVE DIAGNOSIS: Left knee osteoarthritis NAME OF OPERATION: Left total knee arthroplasty SURGEON: Armand Chavira MD STUDENT TEACHING COORDINATOR: Nicole Ashton PA-C ANESTHESIA: Spinal ESTIMATED BLOOD LOSS: 0 mL COMPLICATIONS: None SPECIMENS: None DRAINS: None PREOPERATIVE ANTIBIOTICS: Ancef 2 grams, antibiotic impregnated cement IMPLANTS: 1. J&J Attune # 5 posterior stabilized femur 2. Revision CRS # 5 fixed-bearing tibia, with a 14 mm x 50 mm cemented stem 3. # 5 posterior stabilized, 5 mm fixed-bearing polyethylene 4. 41 patella INDICATIONS: The patient is a 68-year-old with a longstanding history of severe, unrelenting left knee pain secondary to end-stage (grade IV) left knee osteoarthritis. Despite appropriate nonoperative management, including activity modification, anti-inflammatories, ziiz-sqn-itnovsy pain medication, bracing, physical therapy, and injections they continue to have pain and disability. Operative intervention was offered. The risks, benefits and expected outcomes were discussed in detail. These included but were not limited to: Infection, bleeding, injury to blood vessel or nerve, venous thromboembolism. All questions were answered to their satisfaction. Use of an accounting manager assistant controller was necessary throughout the case for patient positioning and safety, soft tissue retraction, and closure. A modifier 22 should be added to this case. The patient's weight of 109 kg with a BMI of 36 made the dissection more difficult. In order to reduce the risk of aseptic loosening a stem was used on the tibial side. These factors added time and cost to complete the case. PROCEDURE: Spinal anesthesia was administered. The patient was placed supine on the operating table. The accounting manager assistant controller made sure the patient was positioned appropriately. The lower extremity was prepped and draped in the usual sterile fashion. The limb was exsanguinated with the Marcus bandage. The pneumatic tourniquet was inflated to 300 mmHg. A standard anterior incision was made with the knee in flexion. Subcutaneous dissection was sharply taken through fascial layer #1. Full-thickness medial and lateral flaps were elevated. The accounting manager assistant controller retracted the soft tissues and protected them throughout the case. A standard subvastus approach was made. The patella was subluxed. The infrapatellar fat pad was debrided. The menisci and cruciate ligaments were sharply d?brided. Marginal osteophytes were d?brided with the rongeur. The drill was used to penetrate the femoral canal. The canal was aspirated and irrigated with pulse lavage. The intramedullary femoral guide was placed for a 5-degree valgus cut, removing 10 mm off the distal femur. The saw was used to make the cut. Whitesides line and the trans epicondylar axis were marked. The femoral sizing guide was pinned onto the distal femur. Three degrees of external rotation nicely parallels the transepicondylar axis. Pins were placed for posterior referencing. The four-in-one cutting guide was pinned onto the distal femur. The anterior, posterior, and chamfer cuts were made. The accounting manager assistant controller protected the collateral ligaments. The box cutting guide was pinned. The box cuts were made. The boxed trial was placed and was an excellent fit. Drill holes for the lugs were made. Attention was then turned to the proximal tibia. The extramedullary tibial guide was placed for a neutral varus/valgus cut with 5 degrees of posterior slope, removing 2 mm based off the medial tibial surface. The accounting manager assistant controller protected the collateral ligaments and the neurovascular bundle. The saw was used to make the cut. Trial components were placed. The knee was nicely balanced in both flexion and extension. The trial components were removed. The tray was placed in appropriate rotation, parallel to our tibial cutting pins. It was pinned by the accounting manager assistant controller and the drill x2 was used. The stemmed tibial trial was placed. The punch was used. The tray was removed. The punch was used again. A bone plug was placed in the femoral canal. Attention was then turned to the patella. [place] patellar thickness was 24 mm. The lobster claw resection guide was used with the 9.5 mm jose. The saw was used to make the cut. Drill holes were made by the accounting manager assistant controller. The trial was placed and was an excellent fit. Cancellous surfaces were irrigated with pulse lavage and thoroughly dried by the accounting manager assistant controller. We cemented the tibial component, then the femoral component. We impacted the 5 mm polyethylene onto the tibial tray. The knee was brought into full extension. We then cemented the patellar component. Excessive cement was removed. The cement was allowed to harden. The knee was taken through a range of motion and was found to be nicely balanced in both flexion and extension. The patella tracks centrally. The accounting manager assistant controller did a three minute dilute Betadine solution soak. The accounting manager assistant controller irrigated the wound with 3 liters of normal saline via pulse lavage. The accounting manager assistant controller reapproximated the extensor mechanism with #1 Vicryl in an interrupted jlytqp-nl-lsnel fashion. The accounting manager assistant controller then ran the extensor mechanism with a #1 PDO Stratafix. The accounting manager assistant controller closed the subcutaneous tissues with a 3-0 Stratafix and the skin with a running 3-0 Stratafix in a subcuticular fashion. Glue was used to seal the skin. The accounting manager assistant controller placed a dry dressing. Sponge and needle counts were correct x2. The patient tolerated the procedure well. There were no apparent complications. They were carefully transferred to the hospital bed and taken to the postanesthesia care unit in satisfactory condition. PLAN: The patient will be mobilized with physical therapy. Aspirin will be used for DVT prophylaxis. They will be discharged to home once medically appropriate.
--- NOTE | 2024-01-28 13:00 | W.ANESCHARGE ---
Anesthesia Charges Start Date/Time Anesthesia Start Date: 01/28/24 Anesthesia Start Time: 10:19 Stop Date/Time Anesthesia Stop Date: 01/28/24 Anesthesia Stop Time: 12:57
[2024-01-28] MEDS: LACTATED RINGERS 1000 ML 1,000 ML 75 ML IV (13:40)
[2024-01-28] MEDS: OXYCODONE 5 MG TABLET PO ×3 (15:38→21:42)
--- NOTE | 2024-01-28 16:27 | P.IMCN_ITS ---
Date of Consult Patient: Margaux Patient Consult date: 01/28/24 Requesting Physician: Orthopedics Primary Care Provider: Mali Leary PA-C Consult Narrative Reason for consult: HTN Narrative: Cammie Ureña is a 68 year old female with h/o HTN, syncope who underwent an elective left TKA by Dr. Chavira for severe osteoarthritis. Cammie tells me she has only been taking metoprolol 100 m, 20 mg of olmesartan and 25 mg HCTZ in the morning, nothing at night. She did not take olmesartan or HCTZ this morning. Per Preop H&P by Dr. Alan 01/08/24: Patient had an episode of syncope and collapse back in June for which I evaluated her for and recommended further evaluation for cardiac cause. Since that time she has had numerous tests up to and including a coronary angiogram which showed no significant coronary artery disease. Her cholesterol has been elevated and she has continued to be recommended to be on statin medications for her elevated cholesterol but she questions whether or not she should continue this as these medications do make her feel unwell with her muscles and joints. Knowing that her coronary angiogram at her age was showing no significant disease she is wondering if she needs to be on this. She would be willing to continue on the Zetia. She does admit that she has been somewhat noncompliant with medication dosing as per cardiology wanting her to be on olmesartan at 40 mg daily and her metoprolol to 100 mg twice daily. She has been taking half of the olmesartan at 20 mg daily and 100 mg of metoprolol in the morning and 50 mg at nighttime. Blood pressure is mildly elevated with her reduced medication doses we could reconsider increasing her olmesartan back to 40 mg after her knee surgery is completed if her blood pressures continue to stay elevated. Would be beneficial to know that once her knee surgery is completed and she is postrecovery from her pain whether or not her blood pressure also improves to some degree. She should follow-up with her primary care provider for hypertension revisit once she is well progress with her rehab within 6 weeks postop for blood pressure recheck. Based on medical decision making with patient we agreed that she would prefer not to be on a cholesterol medication and also informs me that there are multiple family members that have the MTHRF MTH RF gene and understands that this may also affect how her body works with statins. She agrees to continue on Zetia. Review of Systems Status of ROS: Reports: 6 or more systems reviewed and unremarkable except as noted in History and below [facility] Medical History (Updated 01/28/24 @ 17:00 by Delia Smith MD) Breast cancer ?C50.919 - Malignant neoplasm of unspecified site of unspecified female breast (ICD-10) Pseudopolyposis of colon without complication ?K51.40 - Inflammatory polyps of colon without complications (ICD-10) Chronic chest pain ?R07.9 - Chest pain, unspecified (ICD-10) ?G89.29 - Other chronic pain (ICD-10) Elevated troponin ?R79.89 - Other specified abnormal findings of blood chemistry (ICD-10) Syncope and collapse ?R55 - Syncope and collapse (ICD-10) Bilateral knee pain ?M25.561 - Pain in right knee (ICD-10) ?M25.562 - Pain in left knee (ICD-10) Colon polyp ?K63.5 - Polyp of colon (ICD-10) Vitamin D deficiency ?E55.9 - Vitamin D deficiency, unspecified (ICD-10) Hyperlipidemia ?E78.5 - Hyperlipidemia, unspecified (ICD-10) Hypertension ?I10 - Essential (primary) hypertension (ICD-10) Fracture of greater tuberosity of left humerus ?S42.252A - Displaced fracture of greater tuberosity of left humerus, initial encounter for closed fracture (ICD-10) Surgical History (Updated 01/28/24 @ 16:44 by Delia Smith MD) Status post total left knee replacement (01/28/24) ?Z96.652 - Presence of left artificial knee joint (ICD-10) History of tubal ligation ?Z98.51 - Tubal ligation status (ICD-10) History of breast biopsy ?Z98.890 - Other specified postprocedural states (ICD-10) History of total right knee replacement (06/10/15) ?Z96.651 - Presence of right artificial knee joint (ICD-10) History of arthroscopy of left shoulder (12/05/12) ?Z98.890 - Other specified postprocedural states (ICD-10) History of tonsillectomy ?Z90.89 - Acquired absence of other organs (ICD-10) Social History (Updated 01/28/24 @ 16:40 by Delia Smith MD) Narrative: to Boby, who is here with her today. Nonsmoker, Denies alcohol use or recreational drug use. What is your current living situation?: I presently have a place to live Problems where you live: no known problems In the past 12 months, utilities in danger of being shut off: no In past 12 months, lack of transportation kept you from medical appts, meetings, work, or getting things needed for daily living: no In the past 12 mos, have been you worried that your food would run out before you had money to buy more?: never true In the past 12 mos, the food you bought just didn't last and you didn't have money to buy more?: never true Highest level of school completed/degree received: Bachelor's degree Smoking Status: Never smoker Do you use any of these nicotine containing products: None Second hand tobacco smoke exposure: No How often do you have a drink containing alcohol: never How often do you have six or more drinks on one occasion: Never AUDIT-C Alcohol total score: 0 Non-prescribed substance use: denies use Caffeine: Yes How often does anyone, including family, friends and others, physically hurt you : never How often does anyone, including family, friends and others, insult or talk down to you: never How often does anyone, including family, friends and others, threaten you with h arm: never How often does anyone, including family, friends and others, scream or curse at you: never service: No Meds Home Medications and Allergies Home Medications ?Medication ?Instructions ?Recorded ?Confirmed ?Type hydrochlorothiazide 25 mg tablet 25 mg PO DAILY 01/10/22 01/28/24 History metoprolol succinate 100 mg 100 mg PO QAM 01/10/22 01/28/24 History tablet,extended release 24 hr metoprolol succinate 50 mg 50 mg PO HS 01/10/22 01/28/24 History tablet,extended release 24 hr calcium carbonate 500 mg-vitamin 2 tab PO DAILY 01/24/24 01/24/24 History D3 5 mcg (200 unit) tablet (Os-Joce 500 + D3) ezetimibe 10 mg tablet 10 mg PO DAILY 01/24/24 01/28/24 History isosorbide mononitrate 30 mg 30 mg PO DAILY 01/24/24 01/28/24 History tablet,extended release 24 hr lorazepam 0.5 mg tablet (Ativan) 0.5 mg buccal Q4H PRN 01/24/24 01/24/24 History olmesartan 40 mg tablet 20 mg PO DAILY 01/24/24 01/28/24 History Allergies Allergy/AdvReac Type Severity Reaction Status Date / Time Hyynbvq-Jem-Olg Reductase Allergy Diarrhea Uncoded 01/28/24 09:15 Inhibitors Exam Narrative: Exam Narrative: General: No acute distress. Awake alert oriented x3. HEENT: Normocephalic atraumatic, pupils equally round and reactive to light and accommodation. Oropharynx clear. Mucous membranes are moist. No cervical lymphadenopathy, thyromegaly or carotid bruits. No JVD. Cardiovascular: Regular rate and rhythm. No murmurs, gallops, or rubs. Chest: No increased work of breathing. Clear to auscultation bilaterally. No crackles or wheezes. Abdomen: Bowel sounds present. Soft, nondistended, nontender. No hepatosplenomegaly or masses. Extremities: Left knee bandage is clean, dry, and intact. Trace bilateral ankle edema, no cyanosis or clubbing. Skin: No jaundice, no pallor, no rashes. Const: Vital Signs, click to edit/add: Vital Signs - 24 hr 01/28/24 10:06 01/28/24 10:14 01/28/24 10:19 Temperature 98.2 F Pulse Rate 60 62 61 Pulse Rate [Left P ulse Oximeter] Respiratory Rate 16 16 16 Blood Pressure 177/74 H 186/89 H 164/83 H Blood Pressure [Le ft Arm] Pulse Oximetry 98 100 98 Oxygen Delivery Me thod Nasal Cannula Nasal Cannula Oxygen Flow Rate 2 2 01/28/24 12:52 01/28/24 12:55 01/28/24 13:00 Temperature 97.3 F L Pulse Rate 62 60 58 L Pulse Rate [Left P ulse Oximeter] Respiratory Rate 16 16 16 Blood Pressure 122/63 105/57 L 111/67 Blood Pressure [Le ft Arm] Pulse Oximetry 95 94 93 Oxygen Delivery Me thod Room Air Room Air Room Air Oxygen Flow Rate 01/28/24 13:05 01/28/24 13:10 01/28/24 13:15 Temperature Pulse Rate 58 L 56 L 57 L Pulse Rate [Left P ulse Oximeter] Respiratory Rate 16 16 16 Blood Pressure 131/70 134/75 152/79 H Blood Pressure [Le ft Arm] Pulse Oximetry 93 94 95 Oxygen Delivery Me thod Room Air Room Air Room Air Oxygen Flow Rate 01/28/24 13:20 01/28/24 13:45 01/28/24 14:00 Temperature 97.2 F L 96.0 F L 96.8 F L Pulse Rate 60 57 L 54 L Pulse Rate [Left P ulse Oximeter] Respiratory Rate 16 16 18 Blood Pressure 149/74 H 161/77 H 160/84 H Blood Pressure [Le ft Arm] Pulse Oximetry 94 96 97 Oxygen Delivery Me thod Room Air Room Air Oxygen Flow Rate 01/28/24 14:15 01/28/24 14:30 01/28/24 14:54 Temperature 96.5 F L 96.1 F L 96.5 F L Pulse Rate 57 L 53 L Pulse Rate [Left P ulse Oximeter] 57 L Respiratory Rate 16 16 18 Blood Pressure 162/80 H 169/85 H Blood Pressure [Le ft Arm] 145/77 H Pulse Oximetry 99 98 95 Oxygen Delivery Me thod Room Air Room Air Room Air Oxygen Flow Rate 01/28/24 14:55 Temperature 96.5 F L Pulse Rate 57 L Pulse Rate [Left P ulse Oximeter] Respiratory Rate 18 Blood Pressure 145/77 H Blood Pressure [Le ft Arm] Pulse Oximetry 95 Oxygen Delivery Me thod Room Air Oxygen Flow Rate Assessment and Plan Assessment and plan (1) Status post total left knee replacement: Problem comment: - 01/28/[address] Chavira - Routine post op cares - VTE prophylaxis with twice a day low dose aspirin for 4 weeks. Status: Acute (2) Osteoarthritis of left knee: Status: Chronic (3) Hypertension: Problem comment: - Has been working with table worker packager and PCP to adjust antihypertensive medication. She was accepting of increasing olmesartan or metoprolol for elevated BPs if needed. Status: Chronic (4) Hyperlipidemia: Problem comment: - patient has Status: Chronic
[2024-01-28] MEDS: CEFAZOLIN 2 GM in 0.9 % SODIUM CHLORIDE Mini-bag 100 ML IVPB (17:02)
[2024-01-28] MEDS: OLMESARTAN MEDOXOMIL 20 MG TABLET PO (18:00)
[2024-01-28] MEDS: ASPIRIN 81 MG TABLET EC PO (21:41)
[2024-01-28] MEDS: SENNOSIDES 1 TAB TABLET 2 TAB PO (21:41)
[2024-01-29 00:15] VITALS: BP 177/88; PULSE 69; RESP 18; TEMP 36.4; O2SAT 97
[2024-01-29] MEDS: CEFAZOLIN 2 GM in 0.9 % SODIUM CHLORIDE Mini-bag 100 ML IVPB (00:21)
[2024-01-29] MEDS: OXYCODONE 5 MG TABLET PO ×3 (01:56→10:49)
[2024-01-29 02:00] VITALS: BP 188/78; PULSE 72; RESP 18; TEMP 36.4; O2SAT 98
[2024-01-29] MEDS: ACETAMINOPHEN 500 MG TABLET 1000 MG PO ×2 (04:15→10:49)
[2024-01-29 06:38] LABS: Basophils Percent Auto 0.1 % (0.0-3.0); Hematocrit 31.3 % (33.0-51.0); Immature Granulocytes Pct Auto 0.1 %; Lymphocytes Percent Auto 7.9 % (20-44); Mean Corpuscular HGB Conc 32 gm/dL (32-36); Mean Corpuscular Hemoglobin 29 pg (26-34); Mean Corpuscular Volume 92 fL (80-100); Monocytes Percent Auto 6.8 % (0.0-11.0); Neutrophils Percent Auto 85.1 % (42.0-72.0); Platelet Count* 278 K/uL (140-440); RDW Coefficient of Variation % 12.8 % (11.5-15.5); White Blood Count* 13.59 K/uL (4.50-11.00)
[2024-01-29 06:47] LABS: Slide Review Reflex No
[2024-01-29 06:58] LABS: Sodium* 136 mmol/L (135-149)
[2024-01-29 06:59] LABS: Potassium* 3.8 mmol/L (3.6-5.1)
[2024-01-29 07:01] LABS: INR 0.93 (0.91-1.10)
[2024-01-29 07:02] LABS: Blood Urea Nitrogen* 24 mg/dL (7-30); Creatinine* 0.8 mg/dL (0.5-1.5); Est. Creatinine Clearance* 55.07; Estimated Glomerular Filt Rate 81 ml/min
--- NOTE | 2024-01-29 07:31 | PC.NURSE ---
END OF SHIFT NOTE: PT PLEASANT AND COOPERATIVE WITH CARES. A&O. DENIES CP, SOB, N/V. LEFT KNEE DRESSING C/D/I WITH ACTIVE ICE APPLIED. AMBULATES WITH WALKER, GB AND SBA. VSS ON RA; AFEBRILE. SBP HTN. PT RATES LEFT KNEE PAIN 3-5/10 WITH RELIEF FROM SCHEDULED AND PRN PAIN RELIEVER. RIGHT HAND IV DC?D WITH CATHETER INTACT. NEW IV ESTABLISHED TO LEFT AC. BED ALARM ON AND CALL LIGHT WITHIN PT?S REACH.?
[2024-01-29 08:00] VITALS: BP 188/79; PULSE 67; RESP 14; TEMP 36.6; O2SAT 98
--- NOTE | 2024-01-29 08:58 | PM.ORPN ---
Subjective Subjective Time Seen by Provider: 07:30 Date Seen: 01/29/24 Principal diagnosis: Status post left knee replacement Interval history: Cammie is moving very well about her room. She is comfortable. She will discharge to home today with her . Ortho Exam Narrative Exam Narrative: Alert and oriented x3. Patient is in no acute distress. Converses without labored breathing. Hearing is grossly intact. Ambulates with a walker. Examination of the left knee shows the dressing is intact. No erythema or warmth or sign of infection. She is able to straight leg raise. CMS intact left lower extremity. Calf is soft and nontender. No pretibial edema. No ecchymosis. Minimal soft tissue edema about the knee. Const Vital Signs, click to edit/add: Vital Signs - 24 hr 01/28/24 10:06 01/28/24 10:14 01/28/24 10:19 Temperature 98.2 F Pulse Rate 60 62 61 Pulse Rate [Left Pulse Oximeter] Respiratory Rate 16 16 16 Blood Pressure 177/74 H 186/89 H 164/83 H Blood Pressure [Left Arm] Pulse Oximetry 98 100 98 Oxygen Delivery Method Nasal Cannula Nasal Cannula Oxygen Flow Rate 2 2 01/28/24 12:52 01/28/24 12:55 01/28/24 13:00 Temperature 97.3 F L Pulse Rate 62 60 58 L Pulse Rate [Left Pulse Oximeter] Respiratory Rate 16 16 16 Blood Pressure 122/63 105/57 L 111/67 Blood Pressure [Left Arm] Pulse Oximetry 95 94 93 Oxygen Delivery Method Room Air Room Air Room Air Oxygen Flow Rate 01/28/24 13:05 01/28/24 13:10 01/28/24 13:15 Temperature Pulse Rate 58 L 56 L 57 L Pulse Rate [Left Pulse Oximeter] Respiratory Rate 16 16 16 Blood Pressure 131/70 134/75 152/79 H Blood Pressure [Left Arm] Pulse Oximetry 93 94 95 Oxygen Delivery Method Room Air Room Air Room Air Oxygen Flow Rate 01/28/24 13:20 01/28/24 13:45 01/28/24 14:00 Temperature 97.2 F L 96.0 F L 96.8 F L Pulse Rate 60 57 L 54 L Pulse Rate [Left Pulse Oximeter] Respiratory Rate 16 16 18 Blood Pressure 149/74 H 161/77 H 160/84 H Blood Pressure [Left Arm] Pulse Oximetry 94 96 97 Oxygen Delivery Method Room Air Room Air Oxygen Flow Rate 01/28/24 14:15 01/28/24 14:30 01/28/24 14:54 Temperature 96.5 F L 96.1 F L 96.5 F L Pulse Rate 57 L 53 L Pulse Rate [Left Pulse Oximeter] 57 L Respiratory Rate 16 16 18 Blood Pressure 162/80 H 169/85 H Blood Pressure [Left Arm] 145/77 H Pulse Oximetry 99 98 95 Oxygen Delivery Method Room Air Room Air Room Air Oxygen Flow Rate 01/28/24 14:55 01/28/24 15:00 01/28/24 15:00 Temperature 96.5 F L Pulse Rate 57 L Pulse Rate [Left Pulse Oximeter] 58 L Respiratory Rate 18 18 18 Blood Pressure 145/77 H Blood Pressure [Left Arm] Pulse Oximetry 95 95 Oxygen Delivery Method Room Air Room Air Oxygen Flow Rate 01/28/24 15:30 01/28/24 16:00 01/28/24 17:00 Temperature 96.5 F L 97.0 F L 97.0 F L Pulse Rate 58 L 58 L 58 L Pulse Rate [Left Pulse Oximeter] Respiratory Rate 18 18 18 Blood Pressure 177/97 H 173/80 H 174/80 H Blood Pressure [Left Arm] Pulse Oximetry 95 95 95 Oxygen Delivery Method Room Air Room Air Room Air Oxygen Flow Rate 01/28/24 18:00 01/29/24 00:15 01/29/24 00:15 Temperature 97.0 F L Pulse Rate 58 L Pulse Rate [Left Pulse Oximeter] 69 Respiratory Rate 18 18 18 Blood Pressure 146/64 H Blood Pressure [Left Arm] Pulse Oximetry 95 97 Oxygen Delivery Method Room Air Room Air Oxygen Flow Rate 2 01/29/24 00:15 01/29/24 02:00 01/29/24 08:00 Temperature 97.5 F L 97.6 F 97.9 F Pulse Rate Pulse Rate [Left Pulse Oximeter] 69 72 67 Respiratory Rate 18 18 14 Blood Pressure Blood Pressure [Left Arm] 177/88 H 188/78 H 188/79 H Pulse Oximetry 97 98 98 Oxygen Delivery Method Room Air Room Air Room Air Oxygen Flow Rate 01/29/24 08:00 01/29/24 08:00 Temperature Pulse Rate Pulse Rate [Left Pulse Oximeter] 67 Respiratory Rate 14 14 Blood Pressure Blood Pressure [Left Arm] Pulse Oximetry 98 Oxygen Delivery Method Room Air Oxygen Flow Rate Assessment and Plan Assessment and plan (1) Status post total left knee replacement: Problem details: - 01/28/[address] Chavira - Routine post op cares - VTE prophylaxis with twice a day low dose aspirin for 4 weeks. Status: Acute Assessment and Plan: Plan for discharge is today to home if they meet discharge criteria. DVT prophylaxis includes aspirin 81 mg twice daily x1 month, Compression stockings as needed for swelling. Frequent ambulation, every hour throughout the day. Remove dressing in 1 week. Observe wound and phone Orthopedics with any questions or concerns Return to clinic in 1 week for a wound check Return to clinic in 6 weeks with surgeon Minimize narcotic use. Wean off and discontinue soon as possible. Activities as tolerated. No strenuous activity. Outpatient physical therapy as scheduled. Ice and elevate the operative extremity. No restriction on ice.
[2024-01-29] MEDS: OLMESARTAN MEDOXOMIL 20 MG TABLET PO (09:01)
[2024-01-29] MEDS: ASPIRIN 81 MG TABLET EC PO (09:01)
[2024-01-29] MEDS: METOPROLOL SUCCINATE (XL) 100 MG TAB PO (09:01)
[2024-01-29] MEDS: hydroCHLOROthiazide 25 MG TABLET PO (09:01)
[2024-01-29] MEDS: SENNOSIDES 1 TAB TABLET 2 TAB PO (09:01)
--- NOTE | 2024-01-29 11:06 | PC.NURSE ---
Discharge: Patient pleasant and cooperative. Patient hypertensive but stable, lungs clear, BS WNL, IV removed, catheter intact. Patient rates left knee pain at most 6/10, 5 mg of oxy given twice along with schedule tylenol. Left knee dressing C/D/I. Patient SBA/walker/gb. Patient tolerating regular diet and urinating well. Patient signed belongings sheet and discharge form, patient had no further questions regarding discharge. Patient left the floor by wheelchair to home with belongings at 1102.
== END 2024-01-29 11:02 | disposition home or self-care (01) ==
LOC: OR 08:54 → MEDSURG 08:58
PROVIDERS: PCP Physician Assistant Medical; Visit Provider Orthopaedic Surgery
PROC: (CPT 27447; principal; 2024-01-28 10:00)
DX: M17.12 Unilateral primary osteoarthritis, left knee (principal); G89.18 Other acute postprocedural pain; I10 Essential (primary) hypertension; E78.5 Hyperlipidemia, unspecified; Z79.82 Long term (current) use of aspirin; Z87.891 Personal history of nicotine dependence
CPT/HCPCS: 27447; 01402; 36415; 64447; 64454; 73560; 76942; 82565; 84132; 84295; 84520; 85025; 85610; 97110; 97116; 97161; 97165; 97530; 97535; A9270; C1776; J0690; J1100; J2250; J2405; J2704; J2795; J3010; J7120

== ENCOUNTER 2024-03-25 07:30 | Outpatient (RCR) | payer MEDICARE, SELFPAY ==
--- NOTE | 2024-01-21 09:53 | PT.OPEX ---
PT [place] Outpatient Eval PT [facility] Outpatient Eval Start: 01/21/24 08:03 Freq: Status: Active Protocol: Document 01/21/24 09:06 HLA (Rec: 01/21/24 09:18 HLA Laptop) E-signed By Lisandra Sanford, PT, DPT Physical Therapy Outpatient Evaluation Insurance Information Insurance Name Medicare B Insurance Information/Comments Medicare A and B Medical Diagnosis osteoarthrits L knee, L TKA on 01/28/24 Treating Diagnosis pain L knee, difficulty ambulating Referring MD Chavira Subjective Preferred Name Cammie Subjective Pt hss had pain for a long time L knee so it aches, but really doesn't bother her. Grinds, limps, wants to be able to move better, stronger and no limp so Dr. Chavira recommended her TKA. 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 She gardens, rides horse. Balance WNL Posture mildly rounded shldrs Sensation/Reflexes intact light touch Assessment Assessment/Impression 68 year old female is undergoing L TKA with Dr. Chavira 01/28/24 due to OA, pain , crepitus from OA. She had previous R TKA with Dr. Chavira 10 years ago with good results. PMHx of HTN, cancer of breast 2017. She is ind at baseline, works at [place] [employer], lives with spouse 1 level home 2 steps to enter. Pt presents with good strength UEs/LEs, transfers labored to stand, antalgic L LE, amb with limp, side to side sway L knee. Pt was instructed in TKA protocol, preop ex, positioning, use of ice, activity level, bed mob, transfers, fall prevention, gt level surfaces and stairs, OP PT progression. She has a ww for home use. Preop goals met, pt to return to this therapist for OP PT starting , will advance goals at that time. Primary Functional Limitations none Plan of Care Rehabilitation Potential Excellent Physical Therapy Goals 1. Within this session: Pt will verbalize understanding of pre-op/post-op safety, mobility and exercises with home program issued and pt returning for ongoing therapy after TKA replacement. Coordination/Communication With Referral Source Treatment Plan/Direct Interventions Gait Training,Ice/Cold/ Vasopneumatic,Manual Therapy, Neuromuscular Re-ed, Therapeutic Activities, Therapeutic Exercises Patient Will Be Discharged From Therapy Completion of LTG(s),Skills Plateau,Independent w/HEP, Independently Progressing Evaluation Billing Untimed Code Treatment Minutes 14 PT Eval No Charge No Complexity Low Certification Information Initial Certification Date 01/21/24 Ending Certification Date 04/19/24 Provider Signature Required Yes Provider Signature Shows Agreement With POC & Medical Necessity Physician NPI Number Write NPI# Here Physician Comment/Change : Physician Signature & Date Requested Please Sign/Date Here
== END 2024-07-23 23:59 | disposition home or self-care (01) ==
PROVIDERS: PCP Physician Assistant Medical; Visit Provider Orthopaedic Surgery
DX: M17.12 Unilateral primary osteoarthritis, left knee (principal); Z96.652 Presence of left artificial knee joint; M25.562 Pain in left knee; Z74.09 Other reduced mobility; Z51.89 Encounter for other specified aftercare
CPT/HCPCS: 97110; 97112; 97116; 97140; 97161; 97164; 97530